=== PATIENT | female | born 1960 | race Caucasian/White ===

== ENCOUNTER 2016-07-06 11:43 | Emergency (ER) | payer OTHER ==
[~2016-07-06] VITALS: Ht 157.5 cm; Wt 101.2 kg
[~2016-07-06 11:43] MED LIST: ADVIL,NUPRIN,M200 MG PO; BENADRYL ALLERG25 MG PO; CIPRO500 MG PO; COLACE100 MG PO; DEPAKOTE500 MG PO; HAIR SKIN NAIL1 EACH PO; KEPPRA750 MG PO; LOVENOX80 MG/0.8 SC; METFORMIN HCL500 MG PO; SENOKOT,SENN1 TABLET PO; VIMPAT100 MG PO
[2016-07-06 13:29] LABS: HEMATOCRIT 38.2 % (36.0-46.0); MCH 26.8 PG (29.0-34.0); MCHC 32.5 G/DL (30.0-36.0); MCV 82.7 FL (83-99); MEAN PLAT.VOLUME 9.9 uM^3 (9.5-12.4); PLATELET COUNT 163 K/uL (156-360); RBC DIS.WIDTH-SD 40.9 % (39-53); RED BLOOD COUNT 4.62 M/uL (3.80-5.20); WHITE BLOOD COUNT 15.2 K/uL (4.1-10.2)
[2016-07-06 13:46] LABS: CHLORIDE 105 mEq/L (99-109); POTASSIUM 4.5 mEq/L (3.7-5.4); SODIUM 138 mEq/L (136-147)
[2016-07-06 13:47] LABS: GLUCOSE 278 mg/dL (70-99)
[2016-07-06 13:54] LABS: ANION GAP 10 MEQ/L (2-14); GFR ESTIMATE (CALCULATED) 45 mL/min/; UREA NITROGEN (BUN) 15 mg/dL (9-23)
[2016-07-06 13:57] LABS: ADD MIUA? YES; BILIRUBIN NEGATIVE; BLOOD NEGATIVE; COLOR AMBER ((YELLOW)); GLUCOSE (STRIP) 150; KETONES 5; LEUKOCYTES NEGATIVE; NITRITE NEGATIVE; PROTEIN (STRIP) >=500; SPECIFIC GRAVITY 1.024 (1.000-1.030); UROBILINOGEN 0.2 MG/DL (0.2-1.0)
[2016-07-06 14:09] LABS: ALKALINE PHOSPHATASE 101 IU/L (3-129)
[2016-07-06 14:12] LABS: DIRECT BILIRUBIN 0.3 mg/dL (0.0-0.3)
[2016-07-06 14:13] LABS: LIPASE 22 U/L (1.0-51.0)
[2016-07-06 14:27] LABS: BACTERIA 2+ /HPF; CASTS PRESENT /LPF; EPITHELIAL CELLS RARE /HPF; MUCUS NONE SEEN /LPF; RED BLOOD CELLS 0-5 /HPF (0-5); UCUL ADDED? NO; WHITE BLOOD CELLS 0-5 /HPF (0-5)
[2016-07-06 14:28] LABS: AMORPHOUS URATES CRYSTALS 1+; COARSE GRANULAR CASTS RARE /LPF; CRYSTALS PRESENT; HYALINE CASTS 0-5 /LPF
[2016-07-06] MEDS ORDERED: PERCOCET 5/31 TABLET PO (15:27)
[2016-07-06] MEDS ORDERED: ZOFRAN ODT4 MG PO (15:27)
[2016-07-06] MEDS ORDERED: AUGMENTIN875 MG PO (15:27)
[2016-07-06 16:30] VITALS: BP 141/89
== END 2016-07-06 16:32 | disposition home or self-care (01) ==
LOC: RME 11:43 → EME 11:43 → RME 16:32
DX: N12 Tubulo-interstitial nephritis, not specified as acute or chronic (principal); R10.31 Right lower quadrant pain; N39.0 Urinary tract infection, site not specified; R11.2 Nausea with vomiting, unspecified
CPT/HCPCS: 74176; 80048; 80076; 81003; 83690; 85027; 99281; 99285; J0696; J1885; J2405; J3010; J7030; J7050

== ENCOUNTER 2016-07-08 13:24 | Emergency (ER) | payer OTHER ==
[~2016-07-08] VITALS: Ht 157.5 cm; Wt 103.1 kg
[~2016-07-08 13:24] MED LIST changes: +AUGMENTIN875 MG PO; +PERCOCET 5/31 TABLET PO; +ZOFRAN ODT4 MG PO
[2016-07-08 14:04] LABS: EOSINOPHIL (%) 0.4 % (0-5); HEMATOCRIT 34.1 % (36.0-46.0); IMMATURE GRANULOCYTE (%) 0.2 % (0.0-0.7); IMMATURE GRANULOCYTE COUNT 0.2 K/uL; LYMPHOCYTE COUNT 1.6 K/uL (1.0-2.8); MCH 26.4 PG (29.0-34.0); MCHC 31.7 G/DL (30.0-36.0); MCV 83.4 FL (83-99); MEAN PLAT.VOLUME 10.2 uM^3 (9.5-12.4); MONOCYTE (%) 5.8 % (3-12); MONOCYTE COUNT 0.6 K/uL (0-0.8); NEUTROPHIL (%) 77.4 % (45-76); NEUTROPHIL COUNT 7.8 K/uL (1.8-6.4); PLATELET COUNT 117 K/uL (156-360); RBC DIS.WIDTH-CV 13.8 % (11.8-14.6); RBC DIS.WIDTH-SD 40.7 % (39-53); RED BLOOD COUNT 4.09 M/uL (3.80-5.20)
[2016-07-08 14:05] LABS: WHITE BLOOD COUNT 10.1 K/uL (4.1-10.2)
[2016-07-08 14:12] LABS: CHLORIDE 107 mEq/L (99-109); POTASSIUM 4.1 mEq/L (3.7-5.4); SODIUM 139 mEq/L (136-147)
[2016-07-08 14:14] LABS: GLUCOSE 274 mg/dL (70-99)
[2016-07-08 14:15] LABS: ANION GAP 10 MEQ/L (2-14)
[2016-07-08 14:17] LABS: ALKALINE PHOSPHATASE 95 IU/L (3-129)
[2016-07-08 14:18] LABS: GFR ESTIMATE (CALCULATED) 36 mL/min/
[2016-07-08 14:19] LABS: UREA NITROGEN (BUN) 18 mg/dL (9-23)
[2016-07-08 14:20] LABS: TOTAL BILIRUBIN 0.5 mg/dL (0.0-1.0)
[2016-07-08 14:23] LABS: COLOR YELLOW ((YELLOW)); GLUCOSE (STRIP) 500; LEUKOCYTES NEGATIVE; NITRITE NEGATIVE; PROTEIN (STRIP) 300; SPECIFIC GRAVITY 1.028 (1.000-1.030)
[2016-07-08 14:24] LABS: ADD MIUA? YES; BILIRUBIN NEGATIVE; BLOOD MODERATE; KETONES NEGATIVE; UROBILINOGEN 0.2 MG/DL (0.2-1.0)
[2016-07-08 14:30] LABS: RED BLOOD CELLS 0-5 /HPF (0-5); WHITE BLOOD CELLS 0-5 /HPF (0-5)
[2016-07-08 14:31] LABS: BACTERIA RARE /HPF; CASTS NONE SEEN /LPF; CRYSTALS NONE SEEN; EPITHELIAL CELLS 1+ /HPF; MUCUS RARE /LPF; UCUL ADDED? NO
[2016-07-08] MEDS ORDERED: PROMETHAZINE HC25 M1 PO (16:42)
[2016-07-08 17:02] VITALS: BP 127/74
== END 2016-07-08 17:08 | disposition home or self-care (01) ==
LOC: EME 13:24
PROVIDERS: Physician Assistant
DX: R10.9 Unspecified abdominal pain (principal); E11.65 Type 2 diabetes mellitus with hyperglycemia; N39.0 Urinary tract infection, site not specified; Z87.891 Personal history of nicotine dependence
CPT/HCPCS: 80053; 81003; 85025; 99281; 99284; J2405; J7040

== ENCOUNTER 2016-07-15 00:41 | Inpatient (IN) | payer OTHER ==
[~2016-07-15] VITALS: Ht 157.5 cm; Wt 104.5 kg
[~2016-07-15 00:41] MED LIST changes: +PROMETHAZINE HC25 M1 PO
[2016-07-15 01:14] LABS: HEMATOCRIT 36.6 % (36.0-46.0); MCH 26.3 PG (29.0-34.0); MCHC 31.4 G/DL (30.0-36.0); MCV 83.8 FL (83-99); MEAN PLAT.VOLUME 10.2 uM^3 (9.5-12.4); RBC DIS.WIDTH-CV 13.8 % (11.8-14.6); RBC DIS.WIDTH-SD 42.3 % (39-53); RED BLOOD COUNT 4.37 M/uL (3.80-5.20)
[2016-07-15 01:24] LABS: PLATELET COUNT 256 K/uL (156-360)
[2016-07-15 01:27] LABS: CHLORIDE 103 mEq/L (99-109); POTASSIUM 3.6 mEq/L (3.7-5.4); SODIUM 138 mEq/L (136-147)
[2016-07-15 01:29] LABS: GLUCOSE 116 mg/dL (70-99)
[2016-07-15 01:30] LABS: ANION GAP 16 MEQ/L (2-14)
[2016-07-15 01:31] LABS: TOTAL BILIRUBIN 0.6 mg/dL (0.0-1.0)
[2016-07-15 01:33] LABS: ALKALINE PHOSPHATASE 107 IU/L (3-129); GFR ESTIMATE (CALCULATED) 50 mL/min/
[2016-07-15 01:34] LABS: UREA NITROGEN (BUN) 19 mg/dL (9-23)
[2016-07-15 01:41] LABS: QUANTITATIVE HCG < 4.0 MIU/ML
[2016-07-15 06:23] LABS: ADD MIUA? YES; BILIRUBIN NEGATIVE; BLOOD NEGATIVE; COLOR YELLOW ((YELLOW)); GLUCOSE (STRIP) NEGATIVE; KETONES 20; LEUKOCYTES NEGATIVE; NITRITE NEGATIVE; PROTEIN (STRIP) NEGATIVE; UROBILINOGEN 0.2 MG/DL (0.2-1.0)
[2016-07-15 06:29] LABS: BACTERIA NONE SEEN /HPF; EPITHELIAL CELLS 1+ /HPF; MUCUS TRACE /LPF; RED BLOOD CELLS 0-5 /HPF (0-5); UCUL ADDED? NO; WHITE BLOOD CELLS 0-5 /HPF (0-5)
[2016-07-15 06:47] LABS: SPECIFIC GRAVITY 1.068 (1.000-1.030)
[2016-07-15 08:00] VITALS: BP 129/70
[2016-07-15 08:30] VITALS: BP 129/70
[2016-07-15 12:10] VITALS: BP 138/75
[2016-07-15 14:34] LABS: INTER. NORMALIZED RATIO 1.2; PROTHROMBIN TIME 12.4 (9.2-11.2)
[2016-07-15] MEDS ORDERED: AUGMENTIN875 MG PO (15:45)
[2016-07-15] MEDS ORDERED: GLIPIZIDE10 MG PO (15:47)
[2016-07-15] MEDS ORDERED: CHEWABLE-VITE1 EACH PO (15:48)
[2016-07-15 16:44] VITALS: BP 133/81
[2016-07-15] MEDS ORDERED: PROMETHAZINE HC25 M1 PO (17:00)
[2016-07-15 19:40] VITALS: BP 117/61
[2016-07-16 00:21] VITALS: BP 137/72
[2016-07-16 04:58] VITALS: BP 130/62
[2016-07-16 05:42] LABS: EOSINOPHIL (%) 0.9 % (0-5); EOSINOPHIL COUNT 0.1 K/uL (0-0.3); HEMATOCRIT 31.9 % (36.0-46.0); IMMATURE GRANULOCYTE (%) 0.7 % (0.0-0.7); IMMATURE GRANULOCYTE COUNT 0.1 K/uL; INSTRUMENT ABS NEUTROPHIL CT 8.4 K/uL; LYMPHOCYTE COUNT 2.5 K/uL (1.0-2.8); MCH 26.1 PG (29.0-34.0); MCV 84.2 FL (83-99); MEAN PLAT.VOLUME 10.5 uM^3 (9.5-12.4); MONOCYTE (%) 7.6 % (3-12); MONOCYTE COUNT 0.9 K/uL (0-0.8); NEUTROPHIL (%) 70.1 % (45-76); NEUTROPHIL COUNT 8.4 K/uL (1.8-6.4); PLATELET COUNT 238 K/uL (156-360); RBC DIS.WIDTH-CV 13.9 % (11.8-14.6); RBC DIS.WIDTH-SD 42.6 % (39-53); RED BLOOD COUNT 3.79 M/uL (3.80-5.20)
[2016-07-16 05:47] LABS: INTER. NORMALIZED RATIO 1.2; PROTHROMBIN TIME 12.2 (9.2-11.2); PTT 35.2 (25-32)
[2016-07-16 06:05] LABS: ALKALINE PHOSPHATASE 92 IU/L (3-129); ANION GAP 14 MEQ/L (2-14); CHLORIDE 103 MEQ/L (99-109); GFR ESTIMATE (CALCULATED) 55 mL/min/; GLUCOSE 161 mg/dL (70-99); POTASSIUM 3.8 MEQ/L (3.7-5.4); SAMPLE HEMOLYSIS CHECK 0; SAMPLE ICTERIC CHECK 0; SAMPLE LIPEMIA CHECK 0; SODIUM 137 MEQ/L (136-147); TOTAL BILIRUBIN 0.5 MG/DL (0.0-1.0); UREA NITROGEN (BUN) 18 mg/dL (9-23)
[2016-07-16 06:08] LABS: POINT-OF-CARE METER ID UU14188577
[2016-07-16 08:00] VITALS: BP 123/76
[2016-07-16 11:17] LABS: POINT-OF-CARE METER ID UU14188577
[2016-07-16 12:00] VITALS: BP 124/69
[2016-07-16 16:00] VITALS: BP 112/77
[2016-07-17 00:24] VITALS: BP 106/70
[2016-07-17 05:56] LABS: EOSINOPHIL (%) 1.8 % (0-5); EOSINOPHIL COUNT 0.2 K/uL (0-0.3); HEMATOCRIT 32.8 % (36.0-46.0); IMMATURE GRANULOCYTE (%) 0.8 % (0.0-0.7); IMMATURE GRANULOCYTE COUNT 0.1 K/uL; INSTRUMENT ABS NEUTROPHIL CT 7.1 K/uL; LYMPHOCYTE COUNT 3.6 K/uL (1.0-2.8); MCH 26.4 PG (29.0-34.0); MCHC 30.8 G/DL (30.0-36.0); MCV 85.6 FL (83-99); MEAN PLAT.VOLUME 10.5 uM^3 (9.5-12.4); MONOCYTE (%) 7.3 % (3-12); MONOCYTE COUNT 0.9 K/uL (0-0.8); NEUTROPHIL (%) 59.5 % (45-76); NEUTROPHIL COUNT 7.1 K/uL (1.8-6.4); PLATELET COUNT 274 K/uL (156-360); RBC DIS.WIDTH-SD 43.7 % (39-53); RED BLOOD COUNT 3.83 M/uL (3.80-5.20); WHITE BLOOD COUNT 11.8 K/uL (4.1-10.2)
[2016-07-17 06:11] LABS: INTER. NORMALIZED RATIO 1.1; PROTHROMBIN TIME 11.4 (9.2-11.2)
[2016-07-17 06:52] LABS: POINT-OF-CARE METER ID UU14188577
[2016-07-17 08:06] VITALS: BP 125/63
[2016-07-17 16:21] VITALS: BP 116/57
[2016-07-17 21:55] LABS: POINT-OF-CARE METER ID UU14188577
[2016-07-17 23:00] VITALS: BP 119/80
[2016-07-18 06:20] LABS: INTER. NORMALIZED RATIO 1.1; PROTHROMBIN TIME 11.5 (9.2-11.2)
[2016-07-18 08:10] VITALS: BP 120/69
[2016-07-18 08:24] LABS: POINT-OF-CARE METER ID UU14149397
[2016-07-18 16:10] VITALS: BP 154/90
[2016-07-18 23:58] VITALS: BP 133/61
[2016-07-19 05:46] LABS: HEMATOCRIT 30.8 % (36.0-46.0); MCH 26.6 PG (29.0-34.0); MCHC 31.5 G/DL (30.0-36.0); MCV 84.6 FL (83-99); MEAN PLAT.VOLUME 9.9 uM^3 (9.5-12.4); PLATELET COUNT 308 K/uL (156-360); RBC DIS.WIDTH-CV 14.1 % (11.8-14.6); RBC DIS.WIDTH-SD 43.4 % (39-53); RED BLOOD COUNT 3.64 M/uL (3.80-5.20); WHITE BLOOD COUNT 9.9 K/uL (4.1-10.2)
[2016-07-19 06:40] LABS: ANION GAP 10 MEQ/L (2-14); CHLORIDE 104 MEQ/L (99-109); GFR ESTIMATE (CALCULATED) > 59 mL/min/; GLUCOSE 138 mg/dL (70-99); POTASSIUM 4.1 MEQ/L (3.7-5.4); SAMPLE HEMOLYSIS CHECK 0; SAMPLE ICTERIC CHECK 0; SAMPLE LIPEMIA CHECK 0; SODIUM 139 MEQ/L (136-147); UREA NITROGEN (BUN) 18 mg/dL (9-23)
[2016-07-19 08:00] VITALS: BP 147/77
[2016-07-19] MEDS ORDERED: LO-DOSE ASPIRIN81 M2 PO (10:34)
[2016-07-19] MEDS ORDERED: XARELTO15 MG PO (10:34)
[2016-07-19] MEDS ORDERED: DOCUSATE SODIU100 MG PO (10:34)
[2016-07-19] MEDS ORDERED: TRAMADOL HCL50 MG PO (10:38)
[2016-07-19] MEDS ORDERED: MICONAZOLE NITR45 GM VG (11:17)
[2016-07-19 11:41] LABS: POINT-OF-CARE METER ID UU14149397
== END 2016-07-19 14:00 | disposition home health service (06) | DRG 300 ==
LOC: EME 00:41 → EDOF 05:58 → 3EAST 05:58
PROVIDERS: Hospitalist; Internal Medicine; Physician Assistant; Student in an Organized Health Care Education/Training Program
DX: I82.4Z2 Acute embolism and thrombosis of unspecified deep veins of left distal lower extremity (principal); I67.1 Cerebral aneurysm, nonruptured; Z68.41 Body mass index [BMI] 40.0-44.9, adult; I10 Essential (primary) hypertension; E66.9 Obesity, unspecified; I70.202 Unspecified atherosclerosis of native arteries of extremities, left leg; D72.829 Elevated white blood cell count, unspecified; Z90.49 Acquired absence of other specified parts of digestive tract; Z85.9 Personal history of malignant neoplasm, unspecified; Z87.891 Personal history of nicotine dependence; Z87.820 Personal history of traumatic brain injury
CPT/HCPCS: 70496; 80048; 80053; 81003; 82948; 84484; 84702; 85025; 85027; 85379; 85610; 85730; 93926; 93971; 99281; 99285; J1650; J1815; J2270; J2405; J7030